=== PATIENT | female | born 1935 | race Caucasian/White ===

== ENCOUNTER 2020-11-15 15:13 | Emergency (ER) | payer MEDICARE, SELFPAY ==
--- NOTE | 2020-11-15 15:17 | ECG_ITS ---
Measurements Intervals [place] Rate: 96 P: 32 OK: 174 QRS: 74 QRSD: 118 T: 17 QT: 354 QTc: 449 Interpretive Statements SINUS RHYTHM LOW QRS VOLTAGE IN PRECORDIAL LEADS INCOMPLETE RIGHT BUNDLE BRANCH BLOCK BORDERLINE T WAVE ABNORMALITY- INFERIOR LEADS BASELINE ARTIFACT- I, II BORDERLINE ECG Electronically Signed On 11-15-2020 15:46:01 AIRCRAFT ENGINE TECHNICIAN by Joseph Patel D.O.
[2020-11-15 16:22] VITALS: BP 98/68; PULSE 97; RESP 18; TEMP 36.4; O2SAT 97
[2020-11-15 16:35] LABS: Basophils Absolute Auto 0.1 K/mm3 (0.0-0.1); Basophils Percent Auto 0.6 % (0.2-1.2); Eosinophils Absolute Auto 0.2 K/mm3 (0-0.3); Eosinophils Percent Auto 1.4 % (0-4.4); Hematocrit 43.7 % (37.0-47.0); Hemoglobin 14.2 g/dL (12.0-15.0); Immature Granulocyte Absolute 0.24 K/mm3 (0.00-0.031); Immature Granulocyte Percent A 2.2 % (0-0.5); Lymphocytes Absolute Auto 2.57 K/mm3 (0.9-3.2); Lymphocytes Percent Auto 23.4 % (18.3-44.2); Mean Corpuscular HGB Conc 32.5 g/dl (32-36); Mean Corpuscular Hemoglobin 30.1 pg (26-34); Mean Corpuscular Volume 92.6 fl (80-100); Mean Platelet Volume 8.9 fl (7.4-10.4); Monocytes Absolute Auto 0.7 K/mm3 (0.1-0.6); Monocytes Percent Auto 6.4 % (2.6-8.5); Neutrophils Absolute Auto 7.3 K/mm3 (1.3-6.7); Platelet Count Result 256 k/mm3 (150-375); Red Blood Count 4.72 M/mm3 (4.2-5.4)
[2020-11-15 16:48] LABS: Anion Gap 7 mmol/L (8-16); Blood Urea Nitrogen 33 mg/dL (7-17); Calcium 9.3 mg/dL (8.4-10.2); Carbon Dioxide 28 mmol/L (22-30); Chloride 105 mmol/L (98-107); Estimated CRCL calculation 33 ml/min; Estimated Glomerular Filt Rate 53; Glucose 119 mg/dL (65-105); Potassium 3.8 mmol/L (3.4-5.0); Sodium 140 mmol/L (137-145)
[2020-11-15 16:59] LABS: Troponin I < 0.012 ng/mL (0.000-0.034)
--- NOTE | 2020-11-15 19:15 | PC.NURSE ---
Pt up to desk with spouse, spouse angry, states she hasn't eaten since 11:30! Shes been here since 3:30! Pt comes up to intake states I'm just going to go home, I feel fine. I will follow up with my doctor tomorrow . Pt's states we need to get her checked out! and pt continues to state that she's going to leave and follow up. Explained to the patient that she's the next person to come back, and that if she waits a little while longer she will get the next bed, but that if something not stable comes in, she may not. States that's what you told me before that ambulance came in and took the room . Pt and ambulatory to exit. Verb understanding to return if needed.
== END 2020-11-15 16:00 | disposition left against medical advice (07) ==
PROVIDERS: Emergency Provider Emergency Medicine; PCP Family Medicine
DX: R55 Syncope and collapse (principal)
CPT/HCPCS: 36415; 80048; 84484; 85025; 93005; 99199

== ENCOUNTER 2021-05-04 08:02 | Outpatient (CLI) | payer MEDICARE, SELFPAY ==
[2021-05-04 09:36] LABS: Basophils Absolute Auto 0.1 K/mm3 (0.0-0.1); Basophils Percent Auto 1.1 % (0.2-1.2); Eosinophils Absolute Auto 0.2 K/mm3 (0-0.3); Hematocrit 42.2 % (37.0-47.0); Hemoglobin 13.2 g/dL (12.0-15.0); Immature Granulocyte Absolute 0.03 K/mm3 (0.00-0.031); Immature Granulocyte Percent A 0.6 % (0-0.5); Lymphocytes Absolute Auto 1.49 K/mm3 (0.9-3.2); Lymphocytes Percent Auto 27.7 % (18.3-44.2); Mean Corpuscular HGB Conc 31.3 g/dl (32-36); Mean Corpuscular Hemoglobin 30.1 pg (26-34); Mean Corpuscular Volume 96.1 fl (80-100); Monocytes Absolute Auto 0.4 K/mm3 (0.1-0.6); Monocytes Percent Auto 7.6 % (2.6-8.5); Neutrophils Absolute Auto 3.2 K/mm3 (1.3-6.7); Platelet Count Result 235 k/mm3 (150-375); Red Blood Count 4.39 M/mm3 (4.2-5.4); Red Cell Distribution Width 12.2 % (11.5-14.5); White Blood Count 5.4 K/mm3 (4.5-10.0)
[2021-05-04 10:00] LABS: Albumin Level 4.4 g/dL (3.5-5.1); Estimated Glomerular Filt Rate 60; Glucose 94 mg/dL (65-110)
[2021-05-04 12:19] LABS: Hemoglobin A1C 5.8 % (<5.7)
[2021-05-04 14:40] LABS: Urine Cotinine NEGATIVE
== END 2021-05-04 08:03 | disposition home or self-care (01) ==
PROVIDERS: PCP Family Medicine; Visit Provider Orthopaedic Surgery
DX: M17.0 Bilateral primary osteoarthritis of knee (principal); Z01.818 Encounter for other preprocedural examination
CPT/HCPCS: 80307; 82040; 82565; 82947; 83036; 85025; 87081

== ENCOUNTER 2021-07-03 11:06 | Observation (INO) | payer MEDICARE, SELFPAY ==
[2021-05-04 08:38] VITALS: BMI 28.2
[2021-05-04 08:52] VITALS: BP 124/78; PULSE 71; RESP 16; TEMP 36.6; O2SAT 98
--- NOTE | 2021-06-18 14:08 | PC.NURSE ---
PT STATES NO CHANGE IN HEALTH HX SINCE LAST INTERVIEW ON 05/04/21
[2021-07-02] VITALS (14 sets, daily range): BP systolic 99–123; BP diastolic 51–76; PULSE 65–96; RESP 12–67; TEMP 36.3–37.5; O2SAT 92–99
[2021-07-02] MEDS: LACTATED RINGERS 1,000 ML 30 ML IV CONT ×2 (06:30→09:59)
[2021-07-02] MEDS: ACETAMINOPHEN 500 MG TABLET 1000 MG PO ×4 (06:30→23:37)
[2021-07-02] MEDS: TRANEXAMIC ACID 1,000MG/ISO100 1,000 MG/100 ML BAG 200 MG IVPB (06:31)
--- NOTE | 2021-07-02 07:00 | WPDANESEPPF ---
Anes - Initial Pre Proc Eval Procedure: Operation Date: 07/02/21 07:30 Proposed Procedures p Right Total Knee Arthroplasty, Left Knee Injection - Mauri Howell MD Date/Time: 07/02/21 07:00 Surgeon: Mauri Howell MD Pre Op Diagnosis: OA bilat knee Patient Data Age: 85 Gender: F Height: 1.56 m Weight: 68.9 kg Last Vital Signs Temp 36.6 C 05/04/21 08:52 Pulse 71 05/04/21 08:52 Resp 16 05/04/21 08:52 BP 124/78 05/04/21 08:52 Pulse Ox 98 05/04/21 08:52 Allergies Allergy/AdvReac Type Severity Reaction Status Date / Time carbamazepine Allergy Unknown Skin Verified 07/02/21 07:00 Reaction codeine Allergy Unknown Nausea Verified 07/02/21 07:00 phenytoin Allergy Unknown Skin Verified 07/02/21 07:00 Reaction quinine Allergy Unknown Skin Verified 07/02/21 07:00 Reaction Home Medications Medication Instructions Recorded Confirmed Type aspirin 81 mg tablet,delayed 81 mg PO HS 11/24/19 06/26/21 History release loratadine 10 mg tablet 10 mg PO DAILY 11/24/19 06/26/21 History omega-3 fatty acids 1,000 mg 1,000 mg PO BID 11/24/19 06/26/21 History capsule meclizine 12.5 mg tablet 12.5 mg PO TID PRN #30 tablet 03/30/20 06/26/21 Rx omeprazole 20 mg capsule,delayed See Rx Instructions .ROUTE 11/08/20 06/26/21 Rx release .COMPLEX #90 cap glucosamine HCl 500 mg tablet 500 mg PO BID 12/07/20 06/26/21 History multivitamin 1 tablet PO DAILY 12/07/20 06/26/21 History magnesium 250 mg tablet 500 mg PO HS 01/30/21 06/26/21 History acetaminophen [Tylenol Arthritis] 1,300 mg PO Q12H PRN 05/04/21 06/26/21 History duloxetine [Cymbalta] 60 mg PO DAILY 05/04/21 06/26/21 History fluticasone propionate 1 spray NASAL PRN PRN 05/04/21 06/26/21 History rivaroxaban 10 mg tablet 10 mg PO DAILY #14 tablet 05/08/21 06/26/21 Rx Patient hx anesthesia problems: none Family hx anesthesia problems: none Results Review: All pre-operative results and documents have been reviewed as part of the pre-operative evaluation. 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, sequela H/O blood clots Heart murmur Hemiplegia and hemiparesis following unspecified cerebrovascular disease affecting left non-dominant side Hiatal hernia Hyperglycemia, unspecified Hyperlipidemia, unspecified Overweight (BMI 25.0-29.9) Prosthetic and other implants, materials and neurological devices associated with adverse incidents Stroke Vertigo of central origin Surgical History Surgical History History of appendectomy Family History Family History Mother Depression Family history of cardiovascular disease, Onset Age: 91 Family history of congestive heart failure, Onset Age: 91 Grandparent Family history of glaucoma Other Cerebrovascular accident Family history of elevated blood lipids Social History Social History Smoking status: Never smoker Additional smoking assessment comments: DENIES ANY FORM OF TOBACCO USE Alcohol intake: never Living arrangements: with family Gender identity (if verbalized by the patient): Female Spiritual care concerns: No Anes - Eval Final PreProcedure Day of Procedure 07/02/21 07:00 Patient weight: overweight Heart: regular rate and rhythm Lungs: clear to auscultation and normal air movement Airway: Mallampati scale class II Neurological: alert and oriented Last oral intake: >/= 8 hours ASA classification: III Emergent: no Anesthetic plan: proceed Anesthesia type and monitoring: general LMA Results Re
--- NOTE | 2021-07-02 07:04 | WPDANESPNB ---
Anes - Peripheral Nerve Block Date/Time: 07/02/21 07:04 I have discussed with the patient/family/POA the placement of a peripheral nerve block for post-operative pain management, including associated risks, benefits, complications, and side effects. Alternative methods of post-operative analgesia were detailed. Questions were solicited and answers provided to the satisfaction of the patient/family/POA. Time-Out: A pre-procedural Time-Out was completed immediately before starting the procedure and confirmed: Patient Identification, Site, Procedure, Patient Position and the Availability of Requisite Equipment. Clinical Indications: Acute post-operative pain management requested by the operative surgeon. Nerve Block Insertion Note Anes-nerve block: adductor canal right Patient position: supine Skin prep: chlorhexidine Needle: 22 gauge, stimulating, insulated echogenic needle. Needle length: 80 mm Technique: ultrasound Technique comment: in plane Injectate: bupivacaine 0.5% with epi 5 mcg/ml (30cc) Observations: tolerated well Complications: none Procedure start time:: 730 Procedure end time:: 735
--- NOTE | 2021-07-02 07:14 | WPDHPUPDATE1 ---
History and Physical Update Update Date/Time: 07/02/21 07:14 History and Physical has been reviewed, including an updated exam of the patient. There are NO changes in the patient's condition. Risks, benefits, and alternatives have been discussed and questions answered. Patient agrees to proceed with procedure.
[2021-07-02] MEDS: ONDANSETRON INJ 4 MG/2 ML VIAL IV PUSH (07:15)
[2021-07-02] MEDS: ceFAZolin 2 GM/D5W 50 ML 2 GM/50 ML BAG IVPB (07:43)
[2021-07-02] MEDS: GENTAMICIN BONE CEMENT REFOBACIN 1 EACH TOPICAL (08:29)
[2021-07-02] MEDS: TRIAMCINOLONE ACET INJ SUSP 50 MG/5 ML VIAL 20 MG XX (09:11)
--- NOTE | 2021-07-02 09:58 | W.PM.PROC2 ---
Procedure Note - Detailed Date of Procedure 07/02/21 Pre-op Diagnosis OA bilat knee Post-op Diagnosis same Procedure Performed Right total knee replacement; left knee intra-articular injection Surgeon Mauri Howell MD Gas Regulator Repairer Maggie Noel Anesthesia general and regional Description of Procedure The patient was identified and proper site identified. In the preop holding area the anesthesia team performed a right lower extremity sub sartorial block after which the patient was taken to the operating room and transferred to the OR table positioning supine taking care to pad the torso and extremities. After general anesthetic induction and intubation, a nonsterile tourniquet was placed high on the right thigh. At that point a time-out was carried out and the left knee was injected intra-articularly using sterile technique with 2 milliliters of 1% lidocaine and 20 milligrams of Kenalog without incident. Band-Aid was applied. [facility] lower extremity was prepped and draped in the usual sterile fashion. The extremity was exsanguinated and with the knee flexed tourniquet was inflated to t 300 mmHg remaining up for approximately 52 minutes. An anterior midline incision was made and a modified medial parapatellar approach was used. Infra and suprapatellar fat pads were excised. Patella was resected leaving 14 mm thickness and prepared for the 31 round three peg component. Using the intramedullary guide the distal femur was cut in the proper orientation for the size 62.5 femoral component. Using the extramedullary guide the tibia was cut perpendicular to the long axis protecting collateral ligaments and popliteal structures. It was sized to a 63. Flexion and extension gaps were balanced. Trial reduction was undertaken and the weight-bearing line was noted to passed through the center of the joint. Proximal tibia was drilled and punched in the proper orientation for the real component. Trial components were removed. The bone surfaces were washed with pulsatile lavage and dried. The real components were cemented simultaneously. The knee was held in extension and the patella held clamped until the cement had cured. Excess cement was removed from the joint. After trialing it was determined that the 11 mm insert gave full range of motion from 0-120 degrees of flexion and the patella tracked in the femoral groove with no lift-off. After final lavage the joint the real size 11 insert was placed and secured with a locking bar. A Betadine and saline wash was placed into the wound and allowed to sit for approximately 3 minutes and then evacuated. Periarticular tissues were infiltrated with 60 cc of the arthroplasty solution. 1 g of tranexamic acid was left in the wound. The extensor mechanism was repaired with #2 Vicryl suture and 0 looped PDS suture. Subcu was reapproximated with three 0 Monocryl and 2-0 Stratafix with tissue adhesive for the skin. A sterile dressing was applied. She tolerated the procedure well, was awakened and extubated, transferred to the bed and was taken to recovery area in stable condition. There were no known intraoperative complications. Perioperative antibiotics were administered. Estimated Blood Loss 150 Tourniquet Time 52 Drains No Packing No Pathology none sent Complications No immediate complications Condition stable Disposition PACU
--- NOTE | 2021-07-02 11:30 | ADMGEN ---
This patient, Saritha Cain, was admitted to -. Patient/family oriented to hospital policies and general routines including ID bracelet, bed and alarms, visiting hours, pain management, procedures, bathroom and other care routines, personal items, smoking policy, room service/diet, and visiting hours. Information on how to activate the Rapid Response Team has been discussed. Patient/Family are encouraged to report perceived risks to care and to ask questions if they do not understand what they are told or what they should do.
[2021-07-02] MEDS: SODIUM CHLORIDE 0.9% IV 1,000 ML 125 ML IV CONT (12:41)
[2021-07-02] MEDS: oxyCODONE HCL (*CRX) 2.5 MG TAB IR PO ×2 (14:54→19:28)
[2021-07-02] MEDS: DOCUSATE SODIUM 100 MG CAPSULE PO (16:12)
[2021-07-02] MEDS: MAGNESIUM 27 MG TABLET (500 MG MAG GLUCONATE) PO (21:15)
[2021-07-03] VITALS (9 sets, daily range): BP systolic 96–129; BP diastolic 42–58; PULSE 58–91; RESP 16–18; TEMP 36.4–36.7; O2SAT 93–100
--- NOTE | ~2021-07-03 | XR_ITS ---
XR knee RT 2V DATE: 07/02/2021 10:15 INDICATION: Right total knee TECHNIQUE: Postoperative AP and lateral views COMPARISON: 10/12/2020 right knee FINDINGS: Status post right total knee arthroplasty with patellar resurfacing. Normal alignment at th e knee joint. There is expected postoperative subcutaneous and intra-articular emphysema. No fracture or dislocation, periosteal reaction or bone destruction. There is osteopenia. IMPRESSION: Postoperative examination following right total knee arthroplasty with patellar resurfaci ng Reviewed, dictated and finalized at location B. IMPRESSION: Postoperative examination following right total knee arthroplasty w ith patellar resurfacing
[2021-07-03 05:50] LABS: Basophils Percent Auto 0.2 % (0.2-1.2); Hematocrit 31.4 % (37.0-47.0); Hemoglobin 9.9 g/dL (12.0-15.0); Immature Granulocyte Absolute 0.04 K/mm3 (0.00-0.031); Immature Granulocyte Percent A 0.3 % (0-0.5); Lymphocytes Absolute Auto 1.28 K/mm3 (0.9-3.2); Lymphocytes Percent Auto 10.1 % (18.3-44.2); Mean Corpuscular HGB Conc 31.5 g/dl (32-36); Mean Corpuscular Hemoglobin 31.5 pg (26-34); Mean Platelet Volume 9.4 fl (7.4-10.4); Monocytes Absolute Auto 1.2 K/mm3 (0.1-0.6); Monocytes Percent Auto 9.2 % (2.6-8.5); Neutrophils Absolute Auto 10.2 K/mm3 (1.3-6.7); Neutrophils Percent Auto 80.2 % (45.5-73.1); Platelet Count Result 244 k/mm3 (150-375); Red Blood Count 3.14 M/mm3 (4.2-5.4); White Blood Count 12.7 K/mm3 (4.5-10.0)
[2021-07-03 05:56] LABS: Anion Gap 9 mmol/L (8-16); Blood Urea Nitrogen 23 mg/dL (7-17); Carbon Dioxide 24 mmol/L (22-30); Chloride 103 mmol/L (98-107); Estimated CRCL calculation 40 ml/min; Estimated Glomerular Filt Rate > 60; Glucose 122 mg/dL (65-110); Potassium 4.3 mmol/L (3.4-5.0); Sodium 136 mmol/L (137-145)
[2021-07-03] MEDS: oxyCODONE HCL (*CRX) 2.5 MG TAB IR PO (06:13)
[2021-07-03] MEDS: ACETAMINOPHEN 500 MG TABLET 1000 MG PO ×4 (06:15→23:29)
--- NOTE | 2021-07-03 07:30 | PM.PNORT ---
Progress Note: A&P Assessment and Plan (1) History of right knee joint replacement: Code(s): Z96.651 - Presence of right artificial knee joint Status: Resolved Assessment and Plan: 85-year-old female postop day one right knee replacement. Plan on having therapy work with her today. Zofran ordered for nausea. Will change the oxycodone to Nucynta. Possibly able to be discharged tomorrow. Time Spent With Patient Time with patient: 15 - 25 minutes Subjective Subjective Date/Time Seen: 07/03/21 07:30 Post Op day: 1 Principal diagnosis: status post right knee replacement Interval history: This document created with [id number] technology and is subject to focusing machine operator irregularities. 85-year-old female postop day one right knee replacement. Did well yesterday after surgery however overnight has developed nausea and increased pain. Review of Systems Constitutional: Constitutional: Denies chills and Denies fever(s) Eyes: Eyes: Reports no additional eye complaints ENT: Reports system reviewed and no additional complaints, except as documented Cardiovascular: Cardiovascular: Denies chest pain Respiratory: Respiratory: Reports no additional respiratory complaints Gastrointestinal: Gastrointestinal: Denies abdominal pain Exam Const: General: cooperative, no acute distress and alert Nutritional Appearance: other Orientation/consciousness: patient oriented x3 Limitations: no limitations HENMT: Head: normal to inspection Ears: hearing grossly normal bilaterally Face and sinus: face symmetric Mouth: Yes moist mucous membranes Teeth and gingiva: fair dentition Eyes: Alignment and Position: alignment normal and position normal Sclera: sclerae normal Neck: Neck: normal visual inspection and nontender Chest: Chest palpation & inspection: normal inspection of the chest Resp: Effort & Inspection: normal respiratory effort and able to speak in complete sentences GI: Inspection: other ( Nontender, nondistended) Skin: General skin exam: normal color Rashes: no rashes Neuro: General: patient oriented x3 Cognition (Neuro): normal cognition Speech: normal speech Gait exam (Neuro): Other gait observations present Extrem: General: normal to inspection and other Other: Exam of the right knee shows some bruising but dry dressing. Modest swelling noted. Calves negative. Grossly neurovascular status intact right lower extremity. Psych: Appearance: grossly normal Mental Status: mental status grossly normal Objective Data Vital Signs Vital Signs: Vital Signs - 24 hr 07/02/21 09:59 07/02/21 10:10 07/02/21 10:25 Temperature 99.5 F Pulse Rate 96 94 91 Respiratory Rate 14 14 14 Blood Pressure 121/76 118/71 119/71 Pulse Oximetry 95 97 97 07/02/21 10:40 07/02/21 10:55 07/02/21 11:10 Temperature Pulse Rate 87 90 87 Respiratory Rate 12 12 14 Blood Pressure 111/67 105/68 111/69 Pulse Oximetry 95 94 97 07/02/21 11:30 07/02/21 11:45 07/02/21 12:20 Temperature 97.8 F 97.9 F 98.0 F Pulse Rate 80 82 87 Respiratory Rate 16 16 18 Blood Pressure 118/62 111/69 123/76 Pulse Oximetry 95 96 95 07/02/21 13:20 07/02/21 17:06 07/02/21 19:42 Temperature 98.0 F 98.2 F 98.3 F Pulse Rate 93 74 70 Respiratory Rate 16 16 67 H Blood Pressure 105/69 111/64 99/51 L Pulse Oximetry 94 95 92 07/02/21 22:43 07/03/21 03:31 07/03/21 06:08 Temperature 97.3 F L 97.5 F L Pulse Rate 65 76 Respiratory Rate 18 17 Blood Pressure 100/51 L 98/56 L 102/42 L Pulse Oximetry 97 97 Intake/Output Intake/Output: Intake & Output 06/30/21 07/01/21 07/02/21 07/03/21 23:59 23:59 23:59 23:59 Intake Total 1864 1050 / 1050 Balance 1864 1050 / 1050 Meds/Results Medications: Active Medications Generic Name Dose Route Start Last Admin Trade Name Clay PRN Reason Stop Dose Admin Acetaminophen 1,000 mg 07/02/21 12:00 07/03/21 06:15 Acetaminophen 500 Mg Tablet PO 1,000 m
[2021-07-03] MEDS: ONDANSETRON INJ 4 MG/2 ML VIAL IV PUSH ×2 (08:03→12:58)
[2021-07-03] MEDS: DOCUSATE SODIUM 100 MG CAPSULE PO ×2 (08:04→16:21)
[2021-07-03] MEDS: CELECOXIB 100 MG CAPSULE PO ×2 (08:04→16:20)
[2021-07-03] MEDS: PANTOPRAZOLE 40 MG TABLET PO (08:05)
[2021-07-03] MEDS: MECLIZINE HCL 12.5 MG TABLET PO ×2 (08:05→16:20)
[2021-07-03] MEDS: MULTIVITAMINS THERAPEUTIC TAB (*BKC) 1 TABLET PO (08:06)
[2021-07-03] MEDS: LORATADINE 10 MG TABLET PO (08:06)
[2021-07-03] MEDS: RIVAROXABAN 10 MG TABLET PO (08:06)
[2021-07-03] MEDS: DULoxetine HCL 60 MG CAPSULE.DR PO (08:06)
--- NOTE | 2021-07-03 13:17 | PCPTNOTE ---
Attempted to see patient for PT at this time, however patient declined due to nausea. Will check back at later time.
[2021-07-03] MEDS: MAGNESIUM 27 MG TABLET (500 MG MAG GLUCONATE) PO (20:25)
[2021-07-04 03:28] VITALS: BP 112/43; PULSE 83; RESP 18; TEMP 36.5; O2SAT 93
[2021-07-04] MEDS: ACETAMINOPHEN 500 MG TABLET 1000 MG PO ×2 (06:12→11:13)
[2021-07-04 08:00] VITALS: BP 110/62; PULSE 97; RESP 18; TEMP 36.7; O2SAT 100
[2021-07-04] MEDS: MECLIZINE HCL 12.5 MG TABLET PO (08:05)
[2021-07-04] MEDS: PANTOPRAZOLE 40 MG TABLET PO (08:05)
[2021-07-04] MEDS: RIVAROXABAN 10 MG TABLET PO (08:05)
[2021-07-04] MEDS: CELECOXIB 100 MG CAPSULE PO (08:05)
[2021-07-04] MEDS: DOCUSATE SODIUM 100 MG CAPSULE PO (08:05)
[2021-07-04] MEDS: DULoxetine HCL 60 MG CAPSULE.DR PO (08:05)
[2021-07-04] MEDS: MULTIVITAMINS THERAPEUTIC TAB (*BKC) 1 TABLET PO (08:05)
[2021-07-04] MEDS: LORATADINE 10 MG TABLET PO (08:05)
[2021-07-04] MEDS: TAPENTADOL HCL (*CRX) 50 MG TABLET PO (08:08)
[2021-07-04 12:00] VITALS: BP 100/62; PULSE 74; RESP 18; TEMP 36.1; O2SAT 95
--- NOTE | 2021-07-04 12:25 | PM.DS ---
DS: Admitting Diagnosis Discharge Date 07/04/2021 Admitting Diagnosis Right knee osteoarthritis DS: Discharge Diagnosis Discharge Diagnosis (1) History of right knee joint replacement: Code(s): Z96.651 - Presence of right artificial knee joint Status: Resolved Assessment and Plan: A 85-year-old female postop day 2 after right TKA. She states she feels much better after changing medications to Nucynta. She tolerated therapy this morning and has been able to eat and drink without difficulty. The incision dressing is clean and dry. She will be discharged to home today and start formal physical therapy next week. She will be seen in our office in 2 weeks for postop recheck. DS: Summary Hospital Course Reason for hospitalization: Observation after right total knee replacement Hospital Course: 85-year-old female postop day 2 after right total knee replacement. She was feeling nauseated with lower blood pressures yesterday morning. Her pain medication was changed to Nucynta at this time. She did feel better with this change. During assessment today, she has been able to eat and drink without difficulty. She tolerated therapy this morning. Blood pressure is within normal limit. She states she feels much better today and is looking forward to going home. Status at Discharge Functional status at discharge: uses cane/walker Overall status at discharge: patient is progressing back to baseline Time Spent with Patient Time attestation: Total time spent providing and/or coordinating discharge services: Exam Const: General: cooperative, no acute distress and alert Nutritional Appearance: other Orientation/consciousness: patient oriented x3 Limitations: no limitations HENMT: Head: normal to inspection Ears: hearing grossly normal bilaterally Face and sinus: face symmetric Mouth: Yes moist mucous membranes Eyes: Alignment and Position: alignment normal and position normal Neck: Neck: normal visual inspection Resp: Effort & Inspection: normal respiratory effort and able to speak in complete sentences GI: Inspection: other ( Nontender, nondistended) Skin: General skin exam: normal color Rashes: no rashes Neuro: General: patient oriented x3 Cognition (Neuro): normal cognition Speech: normal speech Extrem: General: normal to inspection and other Other: Exam of the right knee shows dry dressing intact. Mild swelling to the knee noted consistent with postop day 2 after right knee replacement. Neurovascular status intact. Calves negative. Psych: Appearance: grossly normal Mental Status: mental status grossly normal Discharge Plan Discharge Discharging Clinician: Terence Vasquez Anticipated Discharge Date/Time: 07/04/21 16:00 Patient Disposition: Home, Self-Care Activity: as tolerated and other - see discharge instructions Diet: regular Wound Care Instructions: other - see discharge instructions Discharge Instructions: 3 times daily for 20 minutes each time, reclining in bed with ice packs over the incision and a pillow underneath the calf of the affected leg, not under the knee. Your wound is glued so it is okay to get into the shower and get the wound wet in two days. Be sure to read through all the information that came from a my office and the hospital. Most of the answers you will need can be found that material. Call the office with any questions that you cannot find answers to, or concerns you may have. After the Xarelto is completed, start taking one coated 325 mg aspirin daily and do this for four more weeks. Please call [facility] at as soon as possible to verify your follow-up appointment to be seen in 2 weeks. Also, call the office with any orthopedic/surgical related questions prior to follow-up. Be sure to get up and move around several times daily but do not overdo it. You have been given a prescription for [place] 5-325. This will be used as repla
== END 2021-07-04 16:13 | disposition home or self-care (01) ==
LOC: ANHSURGERY 11:08 → ANH2MED 11:08
PROVIDERS: Admitting Provider Orthopaedic Surgery; PCP Family Medicine; Visit Provider Orthopaedic Surgery
PROC: (CPT 27447; principal; 2021-07-02 07:30)
DX: M17.0 Bilateral primary osteoarthritis of knee (principal); G89.18 Other acute postprocedural pain; N18.30 Chronic kidney disease, stage 3 unspecified; Z23 Encounter for immunization
CPT/HCPCS: 27447; 64447; 20610; 36415; 73560; 80048; 85025; 86850; 86900; 86901; 90471; 90653; 96365; 96375; 96376; 97110; 97116; 97161; 97165; 97530; 97535; A9270; C1713; C1776; G0008; G0378; G0379; J0171; J0690; J1100; J1170; J1885; J2001; J2270; J2405; J2704; J2795; J3010; J3301; J7030; J7120

== ENCOUNTER 2021-08-22 13:15 | Outpatient (RCR) | payer MEDICARE, SELFPAY ==
--- NOTE | 2021-07-09 11:01 | PTOPEVAL ---
PHYSICAL THERAPY EVALUATION AND PLAN OF CARE Thank you for referring Saritha Cain to [facility].? The patient is scheduled to be seen for therapy? 2x/week for 5 weeks. Please review, sign, date and return this plan of care KENYON. I agree with and certify that the following plan of care is medically necessary. Referring Physician Date Attending Provider: Mauri Howell MD Evaluation Outpatient Past Medical History Diagnosis right TKA Onset 07/02/2021 Subjective Information Saritha is here today one week s Query Text:As Reported By Patient/ /p right TKA. She reports that Family she has poor stamina but is otherwise doing well. Feels like her pain is well managed with tylenol and ibuprofen. Does take hydrocodone only on occasion. States that night pain is typically the worst and there is a throbbing in the thigh. Self Report Pain Assessment Right Knee(s) Reported Pain Level 1 Pain Description Aching,Throbbing Lowest Pain Intensity 1 Greatest Pain Intensity 6 Pain Aggravating Factors Exercise/Activity,Walking, Weight Bearing/Standing Pain Score Pain Score 1: Self Report Interventions Used Interventions Used By Clinicians Exercise Pain Relief Interventions Used By Inactivity/Rest,Medication Patient Lower Extremity Range of Motion Knee Range of Motion Right Knee Flexion Range of Motion - Active 90 Knee Extension Range of Motion - Active -8 Query Text: Lower Extremity Muscle Strength Testing Hip Strength Right Hip Flexion Strength 4+ Good + Hip Extension Strength 3+ Fair + Hip Abduction Strength 3+ Fair + Knee Strength Right Knee Flexion Strength 4 Good Knee Extension Strength 3+ Fair + Muscle Length Testing Muscle Length Testing Right Prone Knee Flexor Muscle Length ( 80 degrees) Gait Assessment 2 Minute Walk Total Distance Walked (feet) 193 2 Minute Walk Gait Speed Score (feet/ 1.60 second) 2 Minute Walk Test Comments with WW Stair Climbing Assessment Stair Climbing Assessment Stair Climbing Assistive Devices Railings Weight Bearing Status - Left Full Weight Bearing Status - Right As Tolerated Number of Steps Climbed (Steps) 4 Technique Single Steps Stair Climbing Direction Both Up and Down Stair Climbing Ability Independent Ability to Step Over a Curb Independent General Exercise General Exercises Side
--- NOTE | 2021-08-09 08:48 | PCPTNOTE ---
Patient called and cancelled today's appointment per request.
--- NOTE | 2021-08-22 16:13 | PTOPEVAL ---
PHYSICAL THERAPY DISCHARGE Thank you for referring Saritha Cain to [facility].? The patient has completed 11 visits for the dx of TKA. Goals are partially met and peaked. NICHOLAS PT. Please review, sign, date and return this plan of care KENYON. I agree with and certify that the following plan of care is medically necessary. Referring Physician Date Admitting Provider: Attending Provider: Mauri Howell MD Referring Provider: *PT Outpatient Discharge Start: 07/09/21 10:00 Freq: Status: Active Protocol: Document 08/22/21 13:32 MLV (Rec: 08/22/21 14:08 MLV [email or web address]) Therapy Assessment Status Assessment Status Assessment Status Discharge Evaluation Information Problem Diagnosis right TKA Onset 07/02/2021 Additional Evaluation Detail The patient reports doing her exercises and feels her right knee has gotten a lot looser. Her left knee is now giving her trouble with buckling and states she is not quite ready to have it replaced yet. The patient reports limited compliance with her exercises and is still very active on her feet. Pt has been instructed on the importance of making her stretching a priority, but continues to put other daily activities Pain Assessment Timing of Pain Assessment Timing of Pain Assessment Assessment Pain Scale Pain Scale Used Numeric (1 - 10) Self Report Pain Assessment Right Knee(s) Reported Pain Level 2 Pain Description Tightness Pain Frequency Acute,Chronic Pain Aggravating Factors Exercise/Activity,Weight Bearing/Standing Pain Behaviors Limping Pain Score Pain Score 2: Self Report Interventions Used Interventions Used By Clinicians Education,Exercise,Heat Pain Relief Interventions Used By Inactivity/Rest Patient Lower Extremity Range of Motion General Lower Extremity Range of Motion Gross Lower Extremity Range of Motion right knee 5' extension, 121 Comments flexion actively prior to stretching. right knee 0'-132' passively after stretching Lower Extremity Muscle Strength Testing General Lower Extremity Strength Reason Not Measured WNL/Left,WNL/Right Hip Strength Right Hip Flexion Strength 4+ Good +
== END 2021-08-24 10:32 | disposition home or self-care (01) ==
LOC: ANHPT 13:15
PROVIDERS: PCP Family Medicine; Visit Provider Orthopaedic Surgery
DX: Z47.1 Aftercare following joint replacement surgery (principal); Z96.651 Presence of right artificial knee joint
CPT/HCPCS: 97110; 97116; 97140; 97162

== ENCOUNTER 2022-05-06 10:54 | Outpatient (CLI) | payer MEDICARE, SELFPAY ==
[2022-05-06 19:12] LABS: Alanine Aminotransferase 21 U/L (6-35); Albumin Level 4.8 g/dL (3.5-5.1); Alkaline Phosphatase 97 U/L (38-126); Aspartate Amino Transferase 36 U/L (14-36); Bilirubin,Total 0.4 mg/dL (0.2-1.3); Cholesterol 233 mg/dL (0-200); HDL Direct 40 mg/dL; Triglycerides 273 mg/dL (<150)
[2022-05-06 19:24] LABS: LDL Cholesterol Direct 112 mg/dL
== END 2022-05-06 10:55 | disposition home or self-care (01) ==
LOC: ANHGOSHLAB 11:01
PROVIDERS: PCP Family Medicine; Visit Provider Internal Medicine Cardiovascular Disease
DX: Z96.659 Presence of unspecified artificial knee joint (principal)
CPT/HCPCS: 36415; 80061; 80076

== ENCOUNTER 2022-07-29 09:40 | Outpatient (CLI) | payer MEDICARE, SELFPAY ==
--- NOTE | 2022-07-29 10:36 | ECG_ITS ---
Measurements Intervals [place] Rate: 64 P: 44 IA: 199 QRS: 32 QRSD: 66 T: 31 QT: 411 QTc: 425 Interpretive Statements SINUS RHYTHM ATRIAL PREMATURE COMPLEX INCOMPLETE RIGHT BUNDLE BRANCH BLOCK LOW QRS VOLTAG- DIFFUSE LEADS BASELINE ARTIFACT- I, II, III, AVR, AVL, AVF, V1-V2 BORDERLINE ECG COMPARED TO ECG 11/15/2020 15:19:34 NO SIGNIFICANT CHANGES Electronically Signed On 07-29-2022 11:19:45 [employer] by Joseph Patel D.O.
[2022-07-29 11:18] LABS: Basophils Absolute Auto 0.1 K/mm3 (0.0-0.1); Basophils Percent Auto 1.5 % (0.2-1.2); Eosinophils Absolute Auto 0.1 K/mm3 (0-0.3); Eosinophils Percent Auto 2.6 % (0-4.4); Hematocrit 40.5 % (37.0-47.0); Hemoglobin 12.7 g/dL (12.0-15.0); Immature Granulocyte Absolute 0.02 K/mm3 (0.00-0.031); Immature Granulocyte Percent A 0.4 % (0-0.5); Lymphocytes Absolute Auto 1.39 K/mm3 (0.9-3.2); Mean Corpuscular HGB Conc 31.4 g/dl (32-36); Mean Corpuscular Volume 95.5 fl (80-100); Mean Platelet Volume 9.1 fl (7.4-10.4); Monocytes Absolute Auto 0.3 K/mm3 (0.1-0.6); Monocytes Percent Auto 7.3 % (2.6-8.5); Neutrophils Absolute Auto 2.7 K/mm3 (1.3-6.7); Neutrophils Percent Auto 58.2 % (45.5-73.1); Platelet Count Result 228 k/mm3 (150-375); Red Blood Count 4.24 M/mm3 (4.2-5.4); Red Cell Distribution Width 12.4 % (11.5-14.5); White Blood Count 4.6 K/mm3 (4.5-10.0)
[2022-07-29 11:30] LABS: Albumin Level 4.7 g/dL (3.5-5.1); Estimated Glomerular Filt Rate 59; Glucose 99 mg/dL (65-110)
[2022-07-29 11:37] LABS: Urine Cotinine NEGATIVE
[2022-07-29 12:00] LABS: Hemoglobin A1C 5.7 % (<5.7)
== END 2022-07-29 09:41 | disposition home or self-care (01) ==
LOC: ANHSURGERY 09:45
PROVIDERS: PCP Family Medicine; Visit Provider Orthopaedic Surgery
DX: M17.12 Unilateral primary osteoarthritis, left knee (principal); Z01.818 Encounter for other preprocedural examination
CPT/HCPCS: 80307; 82040; 82565; 82947; 83036; 85025; 86850; 86900; 86901; 87081; 93005

== ENCOUNTER 2022-08-05 01:02 | Day surgery (SDC) | payer MEDICARE, SELFPAY ==
[2022-07-29 09:55] VITALS: BMI 26.4
--- NOTE | 2022-07-29 10:18 | PC.NURSE ---
Report to the Outpatient Waiting Room, entrance under the green pavilion located off [facility], at time __0600 on date __08/05/22 . Planned Procedure Time: _0730 . Time changes happen often and if your time is changed the preop area will call you the afternoon before. - You and your visitor will be asked to self-screen and do not enter if you have any COVID symptoms. - We encourage only one visitor and NO visitors under age 16 are allowed at this time. Your visitor will receive communication by the phone number that is given day of service. - The patient visitor is requested to social distance or may leave the building when not with patient due to restrictions. - A mask is required within the hospital. Patients may have clear liquids (water, carbonated beverages, clear teas, apple juice) until 3 hours prior to surgery with a maximum of 20 ounces. - No food from midnight until time of surgery - Infants may have breast milk until 4 hours before surgery, formula 6 hours prior to surgery. - Children will be allowed to drink immediately following surgery. If applicable, please bring a bottle or sippy cup to assist with drinking. Juice, water, soda, and popsicles are readily available. For infants on formula, please bring formula the day of surgery. Pacifiers are allowed. Take the following medications with a SIP of water the morning of surgery: ___DULOXETINE Medications to discontinue per physician ____ALL VITAMINS AND SUPPLEMENTS 3 DAYS PRE OP Date to take last dose__08/01/22 Please no make-up, nail slovenian, hairspray, perfume, deodorant, or body powder the day of surgery. No jewelry (including any body piercings) or valuables the day of surgery, leave them at home. Please take a shower or bath the night before, or the morning of, surgery with an antibacterial soap. Wear comfortable, loose fitting clothing. Children are encouraged to wear pajamas. - Jewelry must be removed prior to entering the operating room. Rings and piercings that are not removed may be cut off. - The hospital will not accept responsibility for valuables. - Please leave all valuables, including medications, at home the day of surgery. If you are going home after surgery, a licensed flatbed driver must drive you home. - NO public transportation without another adult. - We recommend that an adult stay with you for 24 hours following discharge. - We also recommend that you do not drive, make important decision, drink alcoholic beverages, or take any drugs that were not prescribed by your health care provider for at least 24 hours after your discharge time. For Pediatric surgeries, we recommend two adults accompany the child home. Follow any additional instructions given to you from your surgeon. If you or anyone in your household have experienced Covid symptoms in the past week, please notify your surgeon or the nurse liaison at the phone number below for possible testing. VERBAL AND WRITTEN instructions given to __PATIENT AND SPOUSE JULIOCESAR and asked if any additional questions and then verbalized understanding. Patient advised to call surgeon office or pre surgery nurse liaison [phone] if any additional questions.
[2022-07-29 10:38] VITALS: BP 117/79; PULSE 72; RESP 18; TEMP 36.6; O2SAT 97
[2022-08-05] VITALS (13 sets, daily range): BP systolic 90–153; BP diastolic 60–79; PULSE 70–85; RESP 10–18; TEMP 36.3–36.6; O2SAT 96–100
--- NOTE | ~2022-08-05 | XR_ITS ---
EXAMINATION: XR knee LT 2V DATE: 08/05/2022 10:17 INDICATION: Postoperative evaluation following left total knee arthroplasty. TECHNIQUE: Anteroposterior and lateral views of the left knee were obtained. COMPARISON: 12/18/2021 FINDINGS: Left total knee arthroplasty with patellar resurfacing appears well seated and in near anatomic align ment. No fractures identified. Expected postoperative subcutaneous and intra-articular gas. IMPRESSION: 1. Left total knee arthroplasty, negative for postoperative purposes. Reviewed, dictated and finalized at location B. [employer]
[2022-08-05] MEDS: ACETAMINOPHEN 500 MG TABLET 1000 MG PO (06:35)
[2022-08-05] MEDS: LACTATED RINGERS 1,000 ML 30 ML IV CONT ×2 (06:40→09:59)
--- NOTE | 2022-08-05 06:42 | WPDANESEPPF ---
Anes - Initial Pre Proc Eval Procedure: Operation Date: 08/05/22 07:30 Proposed Procedures p Left Total Knee Arthroplasty - Mauri Howell MD Date/Time: 08/05/22 06:42 Surgeon: Mauri Howell MD Pre Op Diagnosis: O.A. Lt Knee Patient Data Age: 86 Gender: F Height: 1.57 m Weight: 65.5 kg Last Vital Signs Temp 36.6 C 07/29/22 10:38 Pulse 72 07/29/22 10:38 Resp 18 07/29/22 10:38 BP 117/79 07/29/22 10:38 Pulse Ox 97 07/29/22 10:38 O2 Del Method Room Air 07/29/22 10:38 Allergies Allergy/AdvReac Type Severity Reaction Status Date / Time carbamazepine Allergy Unknown Skin Verified 08/05/22 06:26 Reaction phenytoin Allergy Unknown Skin Verified 08/05/22 06:26 Reaction quinine Allergy Unknown Skin Verified 08/05/22 06:26 Reaction codeine AdvReac Unknown Nausea Verified 08/05/22 06:26 Home Medications Medication Instructions Recorded Confirmed Type aspirin 81 mg tablet,delayed 81 mg PO HS 11/24/19 08/05/22 History release (Adult Low Dose Aspirin) loratadine 10 mg tablet 10 mg PO DAILY 11/24/19 08/05/22 History omega-3 fatty acids 1,000 mg 1,000 mg PO BID 11/24/19 08/05/22 History capsule (Fish Oil Concentrate) meclizine 12.5 mg tablet 12.5 mg PO TID PRN dizziness #30 03/30/20 08/05/22 Rx tabs glucosamine HCl 500 mg tablet 500 mg PO BID 12/07/20 08/05/22 History multivitamin (Multiple Vitamins 1 tablet PO DAILY 12/07/20 08/05/22 History tablet) magnesium 250 mg tablet 500 mg PO HS 01/30/21 08/05/22 History acetaminophen 650 mg 1,300 mg PO Q12H PRN Pain 05/04/21 08/05/22 History tablet,extended release fluticasone propionate 50 1 spray intranasal PRN PRN Allergy 05/04/21 08/05/22 History mcg/actuation nasal Symptoms spray,suspension omeprazole 20 mg capsule,delayed See Rx Instructions .Route 12/14/21 08/05/22 Rx release .COMPLEX #90 caps duloxetine 60 mg capsule,delayed See Rx Instructions .Route 02/25/22 08/05/22 Rx release .COMPLEX #90 caps ezetimibe 10 mg tablet (Zetia) 10 mg PO DAILY 05/02/22 08/05/22 History ECG: SINUS RHYTHM ATRIAL PREMATURE COMPLEX INCOMPLETE RIGHT BUNDLE BRANCH BLOCK LOW QRS VOLTAG- DIFFUSE LEADS BASELINE ARTIFACT- I, II, III, AVR, AVL, AVF, V1-V2 BORDERLINE ECG COMPARED TO ECG 11/15/2020 15:19:34 NO SIGNIFICANT CHANGES Patient hx anesthesia problems: none Family hx anesthesia problems: none Results Review: All pre-operative results and documents have been reviewed as part of the pre-operative evaluation. 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, sequela H/O blood clots Heart murmur Hemiplegia and hemiparesis following unspecified cerebrovascular disease affecting left non-dominant side Hiatal hernia Hyperglycemia, unspecified Hyperlipidemia, unspecified Overweight (BMI 25.0-29.9) Prosthetic and other implants, materials and neurological devices associated with adverse incidents Recurrent UTI Stroke Vertigo of central origin Surgical History Surgical History History of appendectomy History of right knee joint replacement July 02, 2021 History of total right knee replacement Family History Family History Mother Depression Family history of cardiovascular disease, Onset Age: 91 Family history of congestive heart failure, Onset Age: 91 Grandparent Family history of glaucoma Other Cerebrovascular accident Family history of elevated blood lipids Social History Social History Smoking status: Never smoker [employer] carran[employer]
[2022-08-05] MEDS: TRANEXAMIC ACID 1,000MG/ISO100 1,000 MG/100 ML BAG 200 MG IVPB (07:05)
--- NOTE | 2022-08-05 07:14 | WPDHPUPDATE1 ---
History and Physical Update Update Date/Time: 08/05/22 07:14 History and Physical has been reviewed, including an updated exam of the patient. There are NO changes in the patient's condition. Risks, benefits, and alternatives have been discussed and questions answered. Patient agrees to proceed with procedure.
[2022-08-05] MEDS: ceFAZolin 2 GM/D5W 50 ML 2 GM/50 ML BAG IVPB (07:33)
--- NOTE | 2022-08-05 07:34 | WPDANESPNB ---
Anes - Peripheral Nerve Block Date/Time: 08/05/22 07:34 I have discussed with the patient/family/POA the placement of a peripheral nerve block for post-operative pain management, including associated risks, benefits, complications, and side effects. Alternative methods of post-operative analgesia were detailed. Questions were solicited and answers provided to the satisfaction of the patient/family/POA. Time-Out: A pre-procedural Time-Out was completed immediately before starting the procedure and confirmed: Patient Identification, Site, Procedure, Patient Position and the Availability of Requisite Equipment. Clinical Indications: Acute post-operative pain management requested by the operative surgeon. Nerve Block Insertion Note Anes-nerve block: adductor canal left Patient position: supine Skin prep: chlorhexidine Needle: 22 gauge, stimulating, insulated echogenic needle. Needle length: 80 mm Technique: ultrasound Injectate: bupivacaine 0.5% with epi 5 mcg/ml (30cc - no epi) Observations: tolerated well Complications: none Procedure start time:: 725 Procedure end time:: 729
--- NOTE | 2022-08-05 10:07 | P.OP_ITS ---
Procedure Note - Detailed Date of Procedure 08/05/22 Pre-op Diagnosis O.A. Lt Knee Post-op Diagnosis Same Procedure Performed Left total knee replacement Surgeon Mauri Howell MD [employer] Maggie Noel Anesthesia General and Regional Description of Procedure The patient was identified and proper site identified. In the preop holding area the anesthesia team performed a left-sided sub sartorial block after which the patient was taken to the operating room and transferred to the OR table positioning supine taking care to pad the torso and extremities. After general anesthetic induction and intubation, a nonsterile tourniquet was placed high on the left thigh. The left lower extremity was prepped and draped in the usual sterile fashion. The extremity was exsanguinated and with the knee flexed tourniquet was inflated to 300 mmHg remaining up for approximately 63 minutes. An anterior midline incision was made and a modified medial parapatellar approach was used. Infra and suprapatellar fat pads were excised. Patella was resected leaving 14 mm thickness and prepared for the size 31 round three peg component. Using the intramedullary guide the distal femur was cut in the proper orientation for the size 62.5 femoral component. Using the extramedullary guide the tibia was cut perpendicular to the long axis protecting collateral ligaments and popliteal structures. It was sized to a 63. Flexion and extension gaps were balanced. Trial reduction was undertaken and the weight-bearing line was noted to passed through the center of the joint. Proximal tibia was drilled and punched in the proper orientation for the real component. Trial components were removed. The bone surfaces were washed with pulsatile lavage and dried. The real components were cemented simultaneously. The knee was held in extension and the patella held clamped until the cement had cured. Excess cement was removed from the joint. After trialing it was determined that the 11 mm insert gave full range of motion from 0-120 degrees of flexion and the patella tracked in the femoral groove with no lift-off. After final lavage the joint the real 11 insert was placed and secured with a locking bar. A Betadine and saline wash was placed into the wound and allowed to sit for approximately 3 minutes and then evacuated. Periarticular tissues were infiltrated with 60 cc of the arthroplasty solution. Surgicel powder was applied into the wound during the closure. The extensor mechanism was repaired with #2 Vicryl suture and 0 looped PDS suture. Subcu was reapproximated with 3- 0 Monocryl and 2-0 Quill with tissue adhesive for the skin. A sterile dressing was applied. She tolerated the procedure well, was awakened and extubated, transferred to the bed and was taken to recovery area in stable condition. There were no known intraoperative complications. Perioperative antibiotics were administered. Estimated Blood Loss -150.0 Tourniquet Time 63 Drains No Packing No Pathology None sent Complications No immediate complications Condition Stable Disposition PACU
[2022-08-05] MEDS: fentaNYL CITRATE INJ (*CRX) 100 MCG/2 ML VIAL 25 MCG IV PUSH (10:26)
--- NOTE | 2022-08-05 10:30 | SUR.PHASEI ---
Simple mask removed at 1030.
[2022-08-05] MEDS: SODIUM CHLORIDE 0.9% IV 1,000 ML 125 ML IV CONT (11:37)
[2022-08-05] MEDS: oxyCODONE/ACETAMINOPHEN (*CRX) 5-325 MG TABLET 1 TABLET PO (14:07)
[2022-08-05] MEDS: traMADol HCL (*CRX) 50 MG TABLET PO ×3 (15:18→23:36)
[2022-08-05] MEDS: SENNA/DOCUSATE SODIUM TABLET 2 TAB PO (17:21)
[2022-08-05] MEDS: MAGNESIUM 27 MG TABLET (500 MG MAG GLUCONATE) BY MOUTH (20:14)
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
[2022-08-05] MEDS: oxyCODONE/ACETAMINOPHEN (*CRX) 5-325 MG TABLET 2 TABLET PO (22:09)
[2022-08-06] VITALS (7 sets, daily range): BP systolic 94–121; BP diastolic 49–62; PULSE 72–83; RESP 12–16; TEMP 36.5–36.8; O2SAT 93–97
[2022-08-06 06:02] LABS: Alanine Aminotransferase 19 U/L (6-35); Albumin Level 3.8 g/dL (3.5-5.1); Alkaline Phosphatase 61 U/L (38-126); Anion Gap 11 mmol/L (8-16); Aspartate Amino Transferase 25 U/L (14-36); Bilirubin,Total 0.6 mg/dL (0.2-1.3); Blood Urea Nitrogen 17 mg/dL (7-17); Calcium 8.1 mg/dL (8.4-10.2); Carbon Dioxide 24 mmol/L (22-30); Chloride 100 mmol/L (98-107); Estimated CRCL calculation 37 ml/min; Estimated Glomerular Filt Rate 59; Glucose 104 mg/dL (65-110); Magnesium 1.6 mg/dL (1.6-2.3); Potassium 4.4 mmol/L (3.4-5.0); Sodium 135 mmol/L (137-145)
[2022-08-06 06:23] LABS: Hematocrit 30.8 % (37.0-47.0); Hemoglobin 9.5 g/dL (12.0-15.0); Mean Corpuscular HGB Conc 30.8 g/dl (32-36); Mean Corpuscular Hemoglobin 29.9 pg (26-34); Mean Corpuscular Volume 96.9 fl (80-100); Mean Platelet Volume 9.5 fl (7.4-10.4); Platelet Count Result 193 k/mm3 (150-375); Red Blood Count 3.18 M/mm3 (4.2-5.4); Red Cell Distribution Width 12.2 % (11.5-14.5)
--- NOTE | 2022-08-06 07:52 | PM.DS ---
DS: Admitting Diagnosis Discharge Date 08-06-2022 Admitting Diagnosis Left knee osteoarthritis DS: Discharge Diagnosis Discharge Diagnosis (1) Status post total left knee replacement: Code(s): Z96.652 - Presence of left artificial knee joint Status: Acute Plan 86-year-old female postop day 1 after left total knee replacement. Overall doing very well during exam this morning. She participated well with physical therapy yesterday evening and plans to do so again this morning. Her pain is well controlled. Plan discharge later today. Postoperative instructions and wound care were discussed with her in detail. She will follow up in 2 weeks in the office for wound check. DS: Summary Hospital Course Reason for hospitalization: Observation after outpatient procedure Hospital Course: 86-year-old female admitted for observation after left total knee replacement. Hospitalist was consult due to chronic kidney disease and GERD. She is having relatively no issues regarding those. Pain is well controlled regarding her knee. She is participating well with therapy and plans discharge today. Time Spent with Patient Time attestation: Total time spent providing and/or coordinating discharge services: Time spent: Less than 30 minutes Exam Const: General: comfortable and no acute distress Eyes: General: appearance normal, both eyes and all related structures Resp: Effort & Inspection: normal respiratory effort GI: Inspection: non-distended Skin: General skin exam: ecchymosis (Medial and lateral to incision site) Extrem: Other: Exam of the left knee demonstrates a clean and dry surgical dressing. Active range of motion is just shy of full extension. She is able to dorsiflex and plantar flex the ankle without difficulty. No numbness into the foot. Neurovascular status left lower extremity is intact Psych: Mental Status: mental status grossly normal Radiology Reports: Comments: EXAMINATION: XR knee LT 2V DATE: 08/05/2022 10:17 INDICATION: Postoperative evaluation following left total knee arthroplasty. TECHNIQUE: Anteroposterior and lateral views of the left knee were obtained. COMPARISON: 12/18/2021 FINDINGS: Left total knee arthroplasty with patellar resurfacing appears well seated and in near anatomic alignment.? No fractures identified. Expected postoperative subcutaneous and intra-articular gas. IMPRESSION: 1. Left total knee arthroplasty, negative for postoperative purposes. Knee X-Ray 08/05/22 Orthopedics Result Report 07/03/22 DS: Data Data Completed and Pending Labs on day of discharge: Labs from last 24 hours 08/06/22 08/06/22 05:27 05:27 WBC 8.0 RBC 3.18 L Hgb 9.5 L D Hct 30.8 L MCV 96.9 MCH 29.9 MCHC 30.8 L RDW 12.2 Plt Count 193 MPV 9.5 Sodium 135 L Potassium 4.4 Chloride 100 Carbon Dioxide 24 Anion Gap 11 BUN 17 Creatinine 0.90 Estim Creat Clear Calc 37 Estimated GFR 59 Glucose 104 Calcium 8.1 L Magnesium 1.6 Total Bilirubin 0.6 AST 25 ALT 19 Alkaline Phosphatase 61 Total Protein 6.0 L Albumin 3.8 Discharge Plan Discharge Patient Disposition: Home, Self-Care Discharge Instructions: 3 times daily for 20 minutes each time, reclining in bed with ice packs over the incision and a pillow underneath the calf of the affected leg, not under the knee. Your wound is glued so it is okay to remove the dressing, get into the shower and get the wound wet in two days. Be sure to read through all the information that came from a my office and the hospital.? Most of the answers you will need can be found that material. Call the office with any questions that you cannot find answers to, or concerns you may have. After the Xarelto is completed, start taking one coated 325 mg aspirin daily and do this for four more weeks. Please call [facility] at as soon as possible to
[2022-08-06] MEDS: SENNA/DOCUSATE SODIUM TABLET 2 TAB PO (08:34)
[2022-08-06] MEDS: DULoxetine HCL 60 MG CAPSULE.DR BY MOUTH (08:34)
[2022-08-06] MEDS: LORATADINE 10 MG TABLET PO (08:35)
[2022-08-06] MEDS: polyethylene glycoL 3350 17 GM POWD.PACK PO (08:35)
[2022-08-06] MEDS: PANTOPRAZOLE 40 MG TABLET PO (08:35)
[2022-08-06] MEDS: EZETIMIBE 10 MG TABLET PO (08:35)
[2022-08-06] MEDS: RIVAROXABAN 10 MG TABLET PO (08:35)
[2022-08-06] MEDS: MULTIVITAMINS THERAPEUTIC TAB (*BKC) 1 TABLET PO (08:35)
[2022-08-06] MEDS: MECLIZINE HCL 12.5 MG TABLET PO (08:35)
[2022-08-06] MEDS: MAGNESIUM SULF 4 GM/WATER100ML 4 GM/100 ML BAG IVPB (08:38)
[2022-08-06 09:17] LABS: Transferrin 182 mg/dL (206-381)
[2022-08-06 09:46] LABS: Iron 23 ug/dL (37-170)
[2022-08-06 09:57] LABS: Percent Iron Saturation 9 % (20-50)
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
[2022-08-06 10:20] LABS: Folic Acid > 20.0 ng/mL (2.76->20)
[2022-08-06] MEDS: ONDANSETRON INJ 4 MG/2 ML VIAL IV PUSH (10:21)
[2022-08-06] MEDS: oxyCODONE/ACETAMINOPHEN (*CRX) 5-325 MG TABLET 2 TABLET PO (10:21)
== END 2022-08-06 14:10 | disposition home or self-care (01) ==
LOC: ANHSURGERY 05:57 → ANH2MED 11:05
PROVIDERS: Nurse Practitioner; Physician Assistant; PCP Family Medicine; Visit Provider Orthopaedic Surgery
PROC: (CPT 27447; principal; 2022-08-05 07:30)
DX: M17.12 Unilateral primary osteoarthritis, left knee (principal); G89.18 Other acute postprocedural pain; R25.2 Cramp and spasm; N18.30 Chronic kidney disease, stage 3 unspecified; I69.954 Hemiplegia and hemiparesis following unspecified cerebrovascular disease affecting left non-dominant side; E78.5 Hyperlipidemia, unspecified; K21.9 Gastro-esophageal reflux disease without esophagitis; Z79.82 Long term (current) use of aspirin; Z86.718 Personal history of other venous thrombosis and embolism
CPT/HCPCS: 27447; 64447; 36415; 73560; 80053; 82607; 82728; 82746; 83540; 83550; 83735; 84466; 85027; 97110; 97116; 97161; 97165; 97530; 97535; A9270; C1713; C1776; J0171; J0330; J0690; J1100; J1885; J2270; J2405; J2704; J2795; J3010; J3475; J7030; J7120

== ENCOUNTER 2022-09-10 13:15 | Outpatient (RCR) | payer MEDICARE, SELFPAY ==
--- NOTE | 2022-08-22 15:52 | PTOPEVAL1 ---
Assessment and note entered by Kelly Kelley DPT Evaluation Information Assessment Status Evaluation Subjective Information L TKA on 08/05/22. Highest pain in her knee 4/10 and lowest 0/10. Reports significant hip pain which is limiting her more than anything else. Returns to MD in September. Using a walker but before surgery only used a cane. No stairs at home , only 1 step down into garage. Has not been doing her normal cooking and cleaning. Independent dressing and bathing. Lives in [facility]. Does not normally drive and did not prior to surgery. Reported Pain Level Pain Score 3: Self Report Assessment PT Clinical Summary The patient is presenting to skilled therapy s/p L TKA on 08/05/22. She presents with decreased range of motion and strength impairments which are contributing to her current walker use and pain and difficulty doing typical cooking and cleaning. She will benefit from skilled therapy to address these impairments and return to prior level of function. Plan of Care Interventions Electrical Stimulation,Gait Training,Hot Pack/Cold Pack,Manual Therapy,Neuro Re-education,Patient/ Caregiver Education,Therapeutic Activities, Therapeutic Exercise,Self-Care/Home Management PT Services Indicated Yes Treatment Frequency and 2 times a week for 6 weeks Duration These treatments will address the objective and functional deficits as defined above. The patient will be advanced safely and appropriately in order for the patient to progress towards his/her prior level of function. Additional exercises will be introduced and as well as a comprehensive home exercise program upon discharge, if needed, ?to ensure carryover of functional gains achieved in the clinic. This treatment plan has been reviewed and agreement upon by the patient.
--- NOTE | 2022-08-30 12:00 | PCPTNOTE ---
Patient called & cancelled scheduled appointment this date due to being sick.
--- NOTE | 2022-09-12 11:49 | PCPTNOTE ---
Patient called & cancelled scheduled appointment this date due to to snowy weather
--- NOTE | 2022-09-18 10:20 | PTOPDC ---
Assessment and note entered by Kelly Kelley DPT Evaluation Information Assessment Status Discharge - Pt Not Presen Subjective Information L TKA on 08/05/22. Assessment PT Clinical Summary Patient has followed up with MD and been discharged from therapy.
== END 2022-09-18 13:03 | disposition home or self-care (01) ==
LOC: ANHPT 13:15
PROVIDERS: PCP Family Medicine; Visit Provider Orthopaedic Surgery
DX: Z47.1 Aftercare following joint replacement surgery (principal); Z96.652 Presence of left artificial knee joint
CPT/HCPCS: 97110; 97112; 97140; 97161; 97530

== ENCOUNTER 2023-05-24 12:47 | Emergency (ER) | payer MEDICARE, SELFPAY ==
[2023-05-24 13:33] VITALS: BP 126/54; PULSE 71; RESP 16; TEMP 36.4; O2SAT 100
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
== END 2023-05-24 13:58 | disposition home or self-care (01) ==
PROVIDERS: Emergency Provider Nurse Practitioner; PCP Family Medicine
DX: S90.821A Blister (nonthermal), right foot, initial encounter (principal); S90.424A Blister (nonthermal), right lesser toe(s), initial encounter; X58.XXXA Exposure to other specified factors, initial encounter; K21.9 Gastro-esophageal reflux disease without esophagitis; R01.1 Cardiac murmur, unspecified; Z85.828 Personal history of other malignant neoplasm of skin; I12.9 Hypertensive chronic kidney disease with stage 1 through stage 4 chronic kidney disease, or unspecified chronic kidney disease; N18.30 Chronic kidney disease, stage 3 unspecified; I69.354 Hemiplegia and hemiparesis following cerebral infarction affecting left non-dominant side; Z96.653 Presence of artificial knee joint, bilateral; M17.0 Bilateral primary osteoarthritis of knee; Z86.718 Personal history of other venous thrombosis and embolism; Z79.82 Long term (current) use of aspirin
CPT/HCPCS: 99213; G0463

== ENCOUNTER 2025-06-13 13:31 | Outpatient (CLI) | payer MEDICARE, SELFPAY ==
--- NOTE | ~2025-06-13 | XR_ITS ---
EXAMINATION: XR hip RT 2V w AP pelvis, 06/13/2025 13:35 CDT HISTORY: M25.551 - Pain in right hip COMPARISON: No comparisons available. Findings: No acute fracture or malalignment. No significant degenerative changes. Soft tissues unremarkable. Impression: No acute fracture or malalignment. Reviewed, dictated and finalized at location A. Impression: No acute fracture or malalignment.
== END 2025-06-13 13:32 | disposition home or self-care (01) ==
PROVIDERS: PCP Family Medicine; Visit Provider Nurse Practitioner Family
DX: M25.551 Pain in right hip (principal)
CPT/HCPCS: 73502